=== PATIENT | female | born 1945 | race Caucasian/White ===

== ENCOUNTER 2017-03-24 15:02 | Observation (INO) | payer MEDICARE ==
[2017-03-24 19:23] LABS: ABS Basophils 0.1 10^3/ul (0-0.2); ABS Eosinophils 0.2 10^3/ul (0-0.6); ABS Lymphocytes 2.2 10^3/ul (1.0-4.8); ABS Monocytes 0.9 10^3/ul (0-0.8); ABS Neutrophils 7.7 10^3/ul (1.5-7.7); ABS Nucleated RBC 0 10^3/ul; Eosinophil % 1.9 % (0-6); Hematocrit 34 % (35-47); Hemoglobin 11.5 g/dl (12.0-16.0); Lymphocyte % 19.9 % (25-47); Mean Corpuscular HGB Conc 34 g/dl (31-36); Mean Corpuscular Hemoglobin 29 pg (27-31); Mean Corpuscular Volume 84 fL (80-97); Mean Platelet Volume 7 um3 (7.4-10.4); Nucleated Red Blood Cells % 0; Platelet Count 350 10^3/ul (150-450); Red Blood Count 4.01 10^6/ul (4.0-5.4); Red Cell Distribution Width 14 % (10.5-15); White Blood Count 11.2 10^3/ul (3.5-10.8)
[2017-03-24 19:37] LABS: EGFR Non-African American 71.7 (>60)
[2017-03-24] MEDS ORDERED: Acetaminophen TAB* 325 MG PO ONE (19:54)
[2017-03-24 20:12] LABS: Urine Appearance Clear; Urine Blood Negative (Negative); Urine Color Yellow; Urine Ketones Negative (Negative); Urine Protein Negative (Negative); Urine Specific Gravity 1.015 (1.010-1.030); Urine Urobilinogen Negative (Negative)
--- NOTE | 2017-03-24 20:37 | RAD ---
HISTORY: Right flank pain COMPARISONS: None VIEWS: 4: Frontal dual-energy and lateral views of the chest. FINDINGS: CARDIOMEDIASTINAL SILHOUETTE: The cardiomediastinal silhouette is normal. MICAELA: The micaela are normal. PLEURA: The costophrenic angles are sharp. No pleural abnormalities are noted. LUNG PARENCHYMA: The lungs are clear. ABDOMEN: The upper abdomen is clear. There is no subphrenic gas. BONES AND SOFT TISSUES: Degenerative changes are noted of the spine. OTHER: None. IMPRESSION: NO ACTIVE CARDIOPULMONARY DISEASE.
[2017-03-24] MEDS ORDERED: Iohexol 300* (CONTRAST) 10 ML SDV IV ONE (20:41)
[2017-03-24] MEDS ORDERED: Ketorolac INJ* 30 MG/ML 1 ML VIAL IV PUSH ONE (21:41)
[2017-03-24] MEDS ORDERED: Morphine INJ* 2 MG/ML 1 ML CARPUJECT IV ONE (21:44)
[2017-03-24] MEDS ORDERED: Albuterol/Ipratropium NEB.SOL* Albuterol 2.5 MG/Ipratropium 0.5 MG 3 ML INH ONE (23:25)
[2017-03-24] MEDS ORDERED: methylPREDNISolone 125 MG* 2 ML VIAL IV ONE (23:26)
[2017-03-24] MEDS: Albuterol 2.5 MG/3 ML NEB.SOL* (0.083%) INH SCH ×2 (23:51→23:55)
[2017-03-25] MEDS ORDERED: Iohexol 350* (CONTRAST) 500 ML MDV IV ONE (02:49)
--- NOTE | 2017-03-25 04:16 | ED ---
Dickson Lawrence Angela, scribed for Annette Gallegos MD on 03/24/17 at 2217 . Progress - Progress Note Progress Note: This pt was signed out by Dr. Schumacher, pending disposition, awaiting CT abdomen/ pelvis. Pt has no abdominal pain at this time. She feels better and is pain free in the abdomen. O2 saturation is low around 92%. She admits to long history of smoking , and quit 15-20 years ago. Chest XR shows flattening of the diaphragm consistent with mild to moderate COPD. On exam she has decreased breaths sounds bilaterally. Pt denies any chest pain. D-dimer was ordered by the previous physician. However , pt does not have any signs or symptoms consistent with PE. Pt will be given bronchodilators and steroids in the ED. She will be further observed in the ED. CT Abdomen/Pelvis, as read by radiologist: IMPRESSION: Atelectasis and scarring in lung bases. No pleural effusions. Possible hepatic steatosis. The gallbladder, pancreas, adrenal glands, and spleen are unremarkable. 2 mm nonobstructing right intrarenal calculus. No ureteral calculi or hydronephrosis. Moderate aortic calcifications and mild stenosis of the distal abdominal aorta and right iliac artery. No evidence for aortic aneurysm. No evidence for diverticulitis, small bowel obstruction, free fluid, or free air. Normal appendix. Dr. Gallegos has reviewed this radiology report. EKG at 00:41 shows: Rate: tachycardia Rhythm: Sinus at 108 bpm Q waves in inferior leads. No acute ischemic changes. CTA Chest, as read by radiologist: IMPRESSION: Scattered atelectasis and fibrotic changes throughout the lungs. No focal consolidation, pleural effusion, or pneumothorax. No evidence for pulmonary embolism or aortic dissection. Moderate calcified and noncalcified plaques in the aorta. Some of the noncalcified plaques are very irregular. Cannot exclude ulcerated plaque. Dr. Gallegos has reviewed this radiology report. Lab results shows D-dimer of 328, ABG pH of 7.47, pCO2 of 38, pO2 of 52, O2 sat of 91.5, base excess of 3.9. I discussed pt's case with Dr. Antunez, hospitalist, who has agreed to admit the pt. [place] [facility] condition, with a diagnosis of pulmonary fibrosis. Condition: Stable Disposition: [place]mit [place] [facility] [place]/Dx - Diagnoses Provider Diagnoses: Pulmonary fibrosis - Provider Notifications Discussed Care Of Patient With: Marlin Antunez Time Discussed With Above Provider: 03:49 Instructed by Provider To: Other - I discussed pt's case with Dr. Antunez, hospitalist, who has agreed to admit the pt. The documentation as recorded by the Dickson jack Angela accurately reflects the service I personally performed and the decisions made by me, Annette Gallegos MD.
[2017-03-25] MEDS ORDERED: Dextrose 50% Syringe 50 ML* 25 GM/50 ML SYRINGE IV PUSH PRN (05:30)
[2017-03-25] MEDS ORDERED: NS 0.9% 1000 ML* 1,000 ML IV SCH (05:30)
[2017-03-25] MEDS ORDERED: Potassium Chlor TAB* 20 MEQ TAB.ER PO ONE (05:38)
[2017-03-25] MEDS ORDERED: Heparin VIAL(*) 5000 UNITS/ML VIAL (FIVE THOUSAND) SUBCUT SCH (06:00)
[2017-03-25 06:20] LABS: Hematocrit 32 % (35-47); Mean Corpuscular HGB Conc 34 g/dl (31-36); Mean Corpuscular Hemoglobin 29 pg (27-31); Mean Corpuscular Volume 85 fL (80-97); Mean Platelet Volume 7 um3 (7.4-10.4); Platelet Count 311 10^3/ul (150-450); Red Cell Distribution Width 14 % (10.5-15)
[2017-03-25] MEDS ORDERED: Insulin LISPRO* 1 UNITS UNIT SUBCUT SCH (07:30)
--- NOTE | 2017-03-25 07:35 | RAD ---
INDICATION: Appendicitis. COMPARISON: There are no prior studies available for comparison. TECHNIQUE: A CT scan of the abdomen and pelvis was performed with intravenous and oral contrast following intravenous injection of 101 ml of Omnipaque 300 nonionic contrast. Contiguous axial sections were obtained from the lung bases through the symphysis pubis. Images were reconstructed in the coronal and sagittal planes. FINDINGS: There is mild dependent bilateral lower lobe subsegmental atelectasis. No pleural effusion is present. The liver and spleen are normal in size. The liver is decreased in attenuation consistent with fatty infiltration. No significant focal hepatic abnormality is seen. No calcified gallstones are noted. The pancreas appears to be within normal limits. The kidneys and adrenal glands are normal in size. There are couple punctate 1 to 2 mm nonobstructing calculi in the lower pole of the right kidney. No hydronephrosis is seen. The abdominal aorta is normal in caliber. There is moderate to severe calcific plaque present. There is significant narrowing of the distal abdominal aorta and common iliac arteries. No significant enlarged retroperitoneal lymph nodes are seen. The stomach, small and large bowel appear nondistended. The appendix is within normal limits. There is mild descending and sigmoid diverticulosis without evidence for diverticulitis. The uterus is anteverted and normal in size. No free intraperitoneal air or fluid is seen. No significant focal osseous abnormality is seen. IMPRESSION: 1. NO EVIDENCE FOR ACUTE FINDING OR CAUSE FOR THE PATIENT'S ABDOMINAL PAIN IS SEEN. 2. HEPATIC STEATOSIS. 3. SMALL NONOBSTRUCTING RIGHT RENAL CALCULI. 4. MODERATE TO SEVERE ATHEROSCLEROTIC CHANGE.
--- NOTE | 2017-03-25 07:43 | HP ---
CC: Dr. Gould * HISTORY AND PHYSICAL: DATE OF ADMISSION: 03/25/17 PRIMARY CARE PROVIDER: Dr. Gould. CHIEF COMPLAINT: Right flank pain. HISTORY OF PRESENT ILLNESS: Ms. Espana is a 72-year-old female with a history of left-sided breast cancer, hypertension, hyperlipidemia, and diabetes who presented to the emergency room with complaints of right flank pain. The patient states that last week she was dealing with influenza. She states that she thought she was getting over the flu a couple of days ago. She saw Dr. Gould on 03/22/17 for follow up of her flu-like symptoms. Following that appointment, she then began to develop the right flank pain. She saw him again on 03/24/17 where he wanted to perform a CT scan. However, it was not approved to be performed in that setting. The patient then came to the emergency room due to severe right flank pain. The patient states that she underwent CT scan of the abdomen and pelvis after which the right flank pain resolved. She denies any fevers or chills. She does admit to cough and shortness of breath. She was mildly wheezy last week. Currently, the patient states that she feels somewhat shaky. She also notes that she has not had a bowel movement for approximately 24 hours. Once the flank pain resolved, the patient did develop chest discomfort. She states that, too, has resolved at this point. In the emergency room, the patient was noted to be hypoxic and requiring 2 L of oxygen to maintain the saturation in the low to mid 90s. The patient does give extensive history of smoking. She states that she smoked from the age of 17 to 64. When she was smoking, she was smoking approximately two packs per day. The patient has never been diagnosed with COPD previously. PAST MEDICAL HISTORY: 1. Left-sided breast cancer. 2. Hypertension. 3. Hyperlipidemia. 4. Diabetes. PAST SURGICAL HISTORY: 1. Right pointer finger partial amputation. 2. Bilateral cataract extraction. MEDICATIONS: 1. Glimepiride 1 mg p.o. daily. 2. Valsartan/hydrochlorothiazide 160/25 one tab p.o. daily. 3. Norvasc 10 mg p.o. daily. 4. Simvastatin 40 mg p.o. daily. 5. Calcium plus D one tab p.o. daily. 6. Aspirin 81 mg p.o. daily. 7. Metoprolol tartrate 100 mg p.o. b.i.d. 8. Lysine 500 mg p.o. daily. ALLERGIES: ESTRADIOL, METFORMIN, BEE STINGS, LOSARTAN. FAMILY HISTORY: Mom at the age of 79 of possible bone cancer. Dad also of cancer. SOCIAL HISTORY: The patient is a former smoker. She quit in 2008. She admits to smoking two packs per day for approximately 47 years. She does not drink alcohol. 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 She is . Her is her healthcare proxy. She has 2 children. REVIEW OF SYSTEMS: A complete 11-system review of systems was obtained. Pertinent positives and negatives are as per HPI. In addition, the patient states her appetite has been poor over the last week or so. She denies any hematuria or dysuria. PHYSICAL EXAMINATION GENERAL: The patient is a well-developed, elderly female seen sleeping sitting up in bed, in no acute distress. She easily awakens to voice. VITAL SIGNS: Blood pressure 130/60, pulse 99, respirations 18, temp 98.7, O2 sat 92% on room air. HEENT: Pupils are equal and round. Extraocular muscles are intact. Oropharynx is clear. Oral mucosa is moist. The patient wears upper and lower dentures. There is no submandibular, cervical, or supraclavicular adenopathy. Thyroid is not enlarged. No thyroid nodules noted. PULMONARY: Lungs are clear to auscultation bilaterally, though breath sounds are diminished most notably in the bases. CARDIAC: Normal S1, S2. Heart rate is mildly tachycardic, but it is regular. There is no lower extremity edema. ABDOMEN: Bowel sounds are present. Abdomen is soft, nontender, nondistended. MUSCULOSKELETAL: There is no cyanosis or clubbing of the digits. There is full active range of motion of all 4 extremities. SKIN: Warm and dry. There are no rashes. NEUROLOGIC: Cranial nerves II through XII are grossly intact. Sensation is intact to light touch throughout. Strength is 5/5 and symmetric both upper and lower extremities bilaterally. PSYCH: The patient is drowsy. Affect appears appropriate. DIAGNOSTIC STUDIES/LAB DATA: WBC 11.2, hemoglobin 11.5, hematocrit 34, platelets 350. D-dimer 328. Sodium 137, potassium 3.4, chloride 98, CO2 21, BUN 10, creatinine 0.79, glucose 88, calcium 9.7, bilirubin 0.6, AST 24, ALT 26 , alk phos 79. Albumin 3.7. Urinalysis is negative. ABG 7.47/38/52. ASSESSMENT AND PLAN: Ms. Espana is a 72-year-old female with an extensive smoking history, hypertension, hyperlipidemia, diabetes, and a history of breast cancer who presents to the emergency room with complaints of flank pain, which has now resolved, but was also found to be hypoxic. 1. Flank pain. The etiology of this is not clear. The patient states the pain resolved after the CT scan of the abdomen and pelvis. I would have expected a kidney stone to have shown up on the CT scan. We will continue to monitor for symptoms. I question if perhaps this was GI in nature, such as gas pain. 2. Hypoxia. My suspicion is the patient is hypoxic based on her extensive smoking history. She does state that she believes that she had flu last week. I question if maybe she developed some reactive airway disease related to that. She is not wheezy at this point. She feels extremely jittery after having a nebulizer treatment. Therefore, I will hold off on any further nebulizer treatments. I will continue prednisone 40 mg daily for now. Her chest x-ray appeared clear, and CTA of the chest shows scattered atelectasis and fibrotic changes throughout the lungs. No focal consolidation, pleural effusion or pneumothorax is noted. No evidence for pulmonary embolism or aortic dissection. There is moderate calcified and noncalcified plaques in the aorta; some of the noncalcified plaques are very irregular. The radiologist could not exclude an ulcerated plaque. The patient likely should be followed by Pulmonology, and this can occur as an outpatient. At this point, the patient is on 2 L of supplemental oxygen. I would not be surprised if the patient needs supplemental oxygen chcf. 3. Type 2 diabetes. The patient will be maintained on her usual dose of glimepiride. She will also be placed on a lispro sliding scale q.a.c. Hemoglobin A1c will be obtained this morning. 4. Chest pain. Of note, the patient had an episode of chest discomfort in the emergency room. She did not have a troponin drawn on presentation; however, chest pain was not an issue at that point. I will go ahead and get a troponin now. She had an EKG at the time of the chest pain that revealed normal sinus rhythm, and I question slight ST depression in the anterior lateral leads. This is a change from her EKG done on the evening of 03/24/17. If the patient rules out for ND, stress test can be considered. 5. Hypertension. The patient's blood pressure is under very good control at this time. She will be maintained on her usual doses of metoprolol tartrate, losartan/hydrochlorothiazide and Norvasc. 6. Hyperlipidemia. We will continue simvastatin 40 mg p.o. daily. 7. DVT prophylaxis. According to the Adult Thrombosis Prophylaxis Risk Factor Assessment Guide, the patient has a total risk factor score of 5, making her the highest risk. She will be placed on heparin 5000 units subcutaneous q. 8 hours. 8. Code status is full; and, again, the patient indicates that her is her healthcare proxy. TIME SPENT: Fifty-five minutes were spent admitting this patient. [id number]/[facility] #: [id number] JASPER
--- NOTE | 2017-03-25 07:59 | RAD ---
INDICATION: Back and flank pain COMPARISON: None TECHNIQUE: Axial source images were acquired following the administration of 68 mL of Visipaque [address] angiographic technique. Coronal and sagittal reconstructed images were constructed and reviewed. FINDINGS: There there are no filling defects in the pulmonary arteries to indicate acute pulmonary embolic disease. There are bibasilar pleural-based linear densities worse in the right and left. There is coarse calcification of the coronary arteries and arch of the aorta. There is mixed attenuation involving the descending thoracic aorta with irregular mural atheroma. There is no mediastinal, hilar, or axillary lymphadenopathy. Multilevel degenerative changes of the thoracic spine includes loss of intervertebral disc height. Limited views of the upper abdomen show no abnormalities. IMPRESSION: 1. No CT of evidence of pulmonary embolism. 2. Chronic and degenerative changes described in body the report.
[2017-03-25 08:12] LABS: EGFR Non-African American 55.3 (>60)
[2017-03-25] MEDS ORDERED: Metoprolol Tartrate TAB* 100 MG TAB PO SCH (09:00)
[2017-03-25] MEDS ORDERED: METOPROLOL SUCCINATE 100 MG PO SCH (09:00)
[2017-03-25] MEDS ORDERED: Atorvastatin* 20 MG TAB PO SCH (09:00)
[2017-03-25] MEDS ORDERED: Aspirin EC Low Dose* 81 MG TAB.EC PO SCH (09:00)
[2017-03-25] MEDS ORDERED: CMCS:Glimepiride (NF) 2 MG TAB PO SCH (09:00)
[2017-03-25] MEDS ORDERED: predniSONE TAB* 20 MG PO SCH (09:00)
[2017-03-25] MEDS ORDERED: Valsartan TAB* 160 MG PO SCH (09:00)
[2017-03-25] MEDS ORDERED: amLODIPine TAB* 5 MG PO SCH (09:00)
[2017-03-25] MEDS ORDERED: Hydrochlorothiazide TAB* 25 MG PO SCH (09:00)
[2017-03-25] MEDS ORDERED: Mometasone/Formoter 100/5 MDI INH SCH (11:00)
--- NOTE | 2017-03-25 11:50 | DS ---
CC: Dr. Gerry Gould DATE OF ADMISSION: 03/25/2017. DATE OF DISCHARGE: 03/25/2017. HISTORY OF PRESENT ILLNESS: This 72-year-old woman presented with right flank pain. She had never h ad this before. On CT scan there was a nonobstructing right renal calculus, but no obstruction or ur eteral stone. I suspect the patient had a fragment of her renal stone break off and was obstructing briefly, but she passed it. She is asymptomatic at this time. There will be no specific therapy rec ommendations at this time for her right renal calculus, although follow-up examinations with ultrasou nd would be advisable. She was found to be hypoxic with an O2 saturation of 91.5 percent on her blood gas. CTA was done. Th ere was no CTA evidence of pulmonary embolism. The patient did feel better with a nebulizer in the hospital. She may have an Albuterol inhaler at h ome. I have prescribed her Advair Diskus 100/50 two puffs b.i.d., in addition to her usual medicatio ns. FINAL DIAGNOSES: 1. Right renal calculus, nonobstructing. 2. COPD. 3. Diabetes. 4. Chest pain. 5. Hypertension. 6. Hyperlipidemia. DISCHARGE MEDICATIONS: 1. Fluticasone Salmeterol 100/50 one puff b.i.d. 2. Lysine 500 mg daily. 3. Calcium with vitamin D one daily. 4. Aspirin 81 mg daily. 5. Valsartan Hydrochlorothiazide 160/25 one daily. 6. Simvastatin 40 mg daily. 7. Amlodipine 10 mg daily. 8. Glimepiride 1 mg daily. 9. Metoprolol Tartrate 100 mg b.i.d. [id number]/[facility] #: [id number]
[2017-03-25 15:40] VITALS: BP 156/60
== END 2017-03-25 12:00 | disposition home or self-care (01) ==
LOC: ED 15:28 → MEDTELE 03-25 05:15
PROVIDERS: ADMIT Hospitalist; ATTEND Internal Medicine
DX: N20.0 Calculus of kidney (principal); J44.9 Chronic obstructive pulmonary disease, unspecified; E11.9 Type 2 diabetes mellitus without complications; R07.9 Chest pain, unspecified; I10 Essential (primary) hypertension; J84.10 Pulmonary fibrosis, unspecified; E78.5 Hyperlipidemia, unspecified; Z79.82 Long term (current) use of aspirin; R10.84 Generalized abdominal pain; Z87.891 Personal history of nicotine dependence
CPT/HCPCS: 36415; 36600; 71046; 71275; 74177; 80048; 80053; 81003; 82803; 83036; 84484; 85025; 85027; 85379; 93005; 94640; 99285; A9270-GY; G0378; J1644; J2270; J2930; J7512; Q9967

== ENCOUNTER 2018-03-28 06:33 | Day surgery (SDC) | payer MEDICARE ==
[~2018-03-28 06:33] MED LIST: Lactated Ringers 1000 ML Bag* 1,000 ML IV SCH
[2018-03-28] MEDS ORDERED: Buffered Lidocaine 1% SYRIN* 1 ML/SYRINGE INTRADERM ONE (07:19)
[2018-03-28] MEDS ORDERED: ceFAZolin 2 GM PREMIX in ORs 2 GM/50 ML BAG IVPB ONE (07:19)
[2018-03-28] MEDS: Buffered Lidocaine 1% SYRIN* 1 ML/SYRINGE INTRADERM ONE ×2 (07:26)
[2018-03-28] MEDS ORDERED: Midazolam* 1 MG/ML 5 ML VIAL (5 MG) ONE (08:25)
[2018-03-28] MEDS ORDERED: Lidocain 1% EPI 1:100,000 * 30 ML MDV ONE (08:32)
[2018-03-28] MEDS ORDERED: fentaNYL* 50 MCG/ML 2 ML VIAL (100 MCG VIAL) ONE (08:50)
[2018-03-28] MEDS ORDERED: Ondansetron INJ* 2 MG/ML VIAL IV PRN (09:07)
[2018-03-28] MEDS ORDERED: fentaNYL* 50 MCG/ML 2 ML VIAL (100 MCG VIAL) IV PRN (09:07)
[2018-03-28] MEDS ORDERED: Naloxone* 0.4 MG/ML 1 ML VIAL IV PRN (09:07)
[2018-03-28] MEDS ORDERED: oxyCODONE/Acetamin 5/325 MG* TAB PO PRN (09:07)
[2018-03-28] MEDS ORDERED: Ondansetron INJ* 2 MG/ML VIAL ONE (10:01)
[2018-03-28 10:53] VITALS: BP 150/85
== END 2018-03-28 11:09 | disposition home or self-care (01) ==
LOC: OR 06:33
PROVIDERS: ATTEND Plastic Surgery
DX: C44.311 Basal cell carcinoma of skin of nose (principal); I10 Essential (primary) hypertension; Z87.891 Personal history of nicotine dependence; E11.9 Type 2 diabetes mellitus without complications; Z85.3 Personal history of malignant neoplasm of breast
CPT/HCPCS: 88305; 88331; 88332; J0690; J2250; J2405; J3010